=== PATIENT | female | born 1980 | race Caucasian/White ===

== ENCOUNTER 2017-10-18 19:19 | Emergency (ER) | payer SELFPAY ==
[2017-10-18] MEDS ORDERED: Lidocaine 2% Viscous Solution 15 ML Cup PO ONE (19:39)
[2017-10-18] MEDS ORDERED: Benzocaine 20% Topical Spray UD MUCMEM ONE (19:39)
--- NOTE | 2017-10-18 19:49 | EDM.PDOC ---
ED HPI GENERAL MEDICAL PROBLEM - General Chief Complaint: ENT Problem Stated Complaint: PT HAS TOOTHACHE Time Seen by Provider: 10/18/17 19:43 Source of Information: Reports: Patient History Limitations: Reports: No Limitations - History of Present Illness INITIAL COMMENTS - FREE TEXT/NARRATIVE: HISTORY AND PHYSICAL: History of present illness: Patient is a 36-year-old female here with complaint of dental pain. She states that she had the tooth pulled 5 days ago. She states she had it pulled because it was cracked and infected. She states that she has had a lot of pain since then that is not getting better. She is on an antibiotic and has been taking [place] for the pain. She denies any fevers or chills, nausea, vomiting. She denies difficultly swallowing or breathing. Review of systems: As per history of present illness and below otherwise all systems reviewed and negative. Past medical history: As per history of present illness and as reviewed below otherwise noncontributory. Surgical history: As per history of present illness and as reviewed below otherwise noncontributory. Social history: No reported history of drug or alcohol abuse. Family history: As per history of present illness and as reviewed below otherwise noncontributory. Physical exam: General: patient sitting comfortably in no acute distress HEENT: Patient has poor dentition throughout. There is evidence of extraction of the right lower 2nd molar. There is no surrounding erythema or purlence. Atraumatic, normocephalic, pupils reactive, negative for conjunctival pallor or scleral icterus, mucous membranes moist, throat clear, neck supple, nontender, trachea midline. Lungs: Clear to auscultation, breath sounds equal bilaterally, chest nontender. Heart: S1S2, regular, negative for clicks, rubs, or JVD. Extremities: Atraumatic, negative for cords or calf pain. Neurovascular unremarkable. Neuro: Awake, alert, oriented. Cranial nerves II through XII unremarkable. Cerebellum unremarkable. Motor and sensory unremarkable throughout. Exam nonfocal. Notes: Diagnostics: None Therapeutics: Dental Balls Impression: Dental pain follow tooth extraction Plan: 1. Use dental balls as needed for pain 2. Follow up with your dentist in the morning 3. Return to ED as needed as discussed Definitive disposition and diagnosis as appropriate pending reevaluation and review of above. R jaw Pain Score (Numeric/FACES): 8 - Related Data Allergies Allergy/AdvReac Type Severity Reaction Status Date / Time aspirin Allergy Rash Verified 10/18/17 19:30 Home Meds: Home Meds Cephalexin [Keflex] 750 mg PO BID 10/18/17 [History] Past Medical History - Past Health History Medical/Surgical History: Denies Medical/Surgical History - Infectious Disease History Infectious Disease History: Reports: Chicken Pox - Past Surgical History Female Surgical History: Reports: Section Social & Family History - Tobacco Use Smoking Status *Q: Current Every Day Smoker Years of Tobacco use: 12 Packs/Tins Daily: 0.2 - Caffeine Use Caffeine Use: Reports: Soda - Recreational Drug Use Recreational Drug Use: No ED ROS ENT - Review of Systems Review Of Systems: ROS reveals no pertinent complaints other than HPI. ED EXAM, ENT - Physical Exam Exam: See Below (see dictation) Course - Vital Signs Last Recorded V/S: Last Vital Signs Temp 36.6 C 10/18/17 19:28 Pulse 111 H 10/18/17 19:28 Resp 12 10/18/17 19:28 BP 170/98 H 10/18/17 19:28 Pulse Ox 100 10/18/17 19:28 - Orders/Labs/Meds Meds: Medications Discontinued Medications Generic Name Dose Route Start Last Admin Trade Name Freq PRN Reason Stop Dose Admin Benzocaine 2 each 10/18/17 19:39 Hurricaine One 20% MUCMEM 10/18/17 19:40 ONETIME ONE Lidocaine HCl 15 ml 10/18/17 19:39 Xylocaine 2% Viscous PO 10/18/17 19:40 ONETIME ONE Departure - Departure Time of Disposition: 19:49 Disposition: Home, Self-Care 01 Condition: Good Clinical Impression: Dentalgia - Discharge Information Referrals: PCP,None [Primary Care Provider] - Additional Instructions: The following information is given to patients seen in the emergency department who are being discharged to home. This information is to outline your options for follow-up care. We provide all patients seen in our emergency department with a follow-up referral. The need for follow-up, as well as the timing and circumstances, are variable depending upon the specifics of your emergency department visit. If you don't have a primary care physician on staff, we will provide you with a referral. We always advise you to contact your personal physician following an emergency department visit to inform them of the circumstance of the visit and for follow-up with them and/or the need for any referrals to a consulting specialist. The emergency department will also refer you to a specialist when appropriate. This referral assures that you have the opportunity for follow-up care with a specialist. All of these measure are taken in an effort to provide you with optimal care, which includes your follow-up. Under all circumstances we always encourage you to contact your private physician who remains a resource for coordinating your care. When calling for follow-up care, please make the office aware that this follow-up is from your recent emergency room visit. If for any reason you are refused follow-up, please contact the [facility] Emergency Department at and asked to speak to the emergency department charge nurse. 1. Use dental balls as needed for pain 2. Follow up with your dentist in the morning 3. Return to ED as needed as discussed
[2017-10-18 20:07] VITALS: BP 133/96
== END 2017-10-18 20:07 | disposition home or self-care (01) ==
LOC: MW.ED 19:19
DX: K08.89 Other specified disorders of teeth and supporting structures (principal); F17.210 Nicotine dependence, cigarettes, uncomplicated; Z88.8 Allergy status to other drugs, medicaments and biological substances; Z79.899 Other long term (current) drug therapy; Z98.890 Other specified postprocedural states
CPT/HCPCS: 99283; A9270

== ENCOUNTER 2018-05-17 23:34 | Emergency (ER) | payer SELFPAY ==
--- NOTE | 2018-05-17 23:44 | EDM.PDOC ---
ED HPI GENERAL MEDICAL PROBLEM - General Chief Complaint: Upper Extremity Injury/Pain Stated Complaint: FINGER ON RT HAND HURTS Time Seen by Provider: 05/17/18 23:40 - History of Present Illness INITIAL COMMENTS - FREE TEXT/NARRATIVE: HISTORY AND PHYSICAL: History of present illness: Patient is a 37-year-old white female presents with concern of acute injury to her right hand particularly her fifth digit in which she states she hit it into a wall yesterday. She denies other tremor concern Review of systems: As per history of present illness and below otherwise all systems reviewed and negative. Past medical history: As per history of present illness and as reviewed below otherwise noncontributory. Surgical history: As per history of present illness and as reviewed below otherwise noncontributory. Social history: No reported history of drug or alcohol abuse. Family history: As per history of present illness and as reviewed below otherwise noncontributory. Physical exam: HEENT: Atraumatic, normocephalic, pupils reactive, negative for conjunctival pallor or scleral icterus, mucous membranes moist, throat clear, neck supple, nontender, trachea midline. Lungs: Clear to auscultation, breath sounds equal bilaterally, chest nontender. Heart: S1S2, regular, negative for clicks, rubs, or JVD. Abdomen: Soft, nondistended, nontender. Negative for masses or hepatosplenomegaly. Negative for costovertebral tenderness. Pelvis: Stable nontender. Genitourinary: Deferred. Rectal: Deferred. Extremities: Patient is known to have swelling and pain over the DIP fifth digit of her right hand with a bit of a flexion deformity neurovascular exam is unremarkable. Neuro: Awake, alert, oriented. Cranial nerves II through XII unremarkable. Cerebellum unremarkable. Motor and sensory unremarkable throughout. Exam nonfocal. Diagnostics: X-ray rating Therapeutics: AlumaFoam volar splint Impression: #1 acute injury fifth digit right hand rule out extensor tendon injury Definitive disposition and diagnosis as appropriate pending reevaluation and review of above. - Related Data Allergies Allergy/AdvReac Type Severity Reaction Status Date / Time aspirin Allergy Rash Verified 10/18/17 19:30 Home Meds: Home Meds Cephalexin [Keflex] 750 mg PO BID 10/18/17 [History] Past Medical History - Past Health History Medical/Surgical History: Denies Medical/Surgical History - Infectious Disease History Infectious Disease History: Reports: Chicken Pox - Past Surgical History Female Surgical History: Reports: Section Social & Family History - Caffeine Use Caffeine Use: Reports: Soda Review of Systems - Review of Systems Review Of Systems: ROS reveals no pertinent complaints other than HPI. ED EXAM, GENERAL - Physical Exam Exam: See Below (See dictation) Course - Orders/Labs/Meds Orders: Active Orders 24 hr Category Date Time Status Hand Comp Min 3V Rt [CR] Stat Exams 05/17/18 23:41 Ordered Departure - Departure Time of Disposition: 23:44 Disposition: Home, Self-Care 01 Condition: Good Clinical Impression: Injury of right hand - Discharge Information Referrals: PCP,None [Primary Care Provider] - Additional Instructions: The following information is given to patients seen in the emergency department who are being discharged to home. This information is to outline your options for follow-up care. We provide all patients seen in our emergency department with a follow-up referral. The need for follow-up, as well as the timing and circumstances, are variable depending upon the specifics of your emergency department visit. If you don't have a primary care physician on staff, we will provide you with a referral. We always advise you to contact your personal physician following an emergency department visit to inform them of the circumstance of the visit and for follow-up with them and/or the need for any referrals to a consulting specialist. The emergency department will also refer you to a specialist when appropriate. This referral assures that you have the opportunity for followup care with a specialist. All of these measure are taken in an effort to provide you with optimal care, which includes your followup. Under all circumstances we always encourage you to contact your private physician who remains a resource for coordinating your care. When calling for followup care, please make the office aware that this follow-up is from your recent emergency room visit. If for any reason you are refused follow-up, please contact the [facility] emergency department at and asked to speak to the emergency department charge nurse. [facility] specialty clinic-Plastics [address] [place] [address] [phone] Splint as directed follow-up hand surgery above call to schedule appointment - My Orders Last 24 Hours: My Active Orders 05/17/18 23:41 Hand Comp Min 3V Rt [CR] Stat - Assessment/Plan Last 24 Hours: My Active Orders 05/17/18 23:41 Hand Comp Min 3V Rt [CR] Stat
[2018-05-18 00:50] VITALS: BP 132/87
--- NOTE | 2018-05-18 10:05 | CR ---
EXAM DATE: 05/17/18 PATIENT'S AGE: 37 Patient: JAVIER EPSTEIN Facility: [facility] Site . Site : [id number] Study: XRay-Extremity Right HAND [id number]/[id number] 12:09:09 AM Ordering Physician: Jodi Aponte Final Report: INDICATION: Hand pain, punched a wall 1 or 2 days ago TECHNIQUE: Hand radiograph 3 views right COMPARISON: None FINDINGS: Bone: There is a minimally displaced intra-articular avulsion fracture from the dorsal aspect of the distal 5th phalanx. The fracture fragment measures 2 mm. Joint: The carpal and metacarpal-phalangeal joints are unremarkable in appearance. The interphalangeal joints are normal in appearance. Soft tissue: Unremarkable. No radiopaque foreign bodies are seen. IMPRESSION: 1. There is a minimally displaced intra-articular avulsion fracture from the dorsal aspect of the distal 5th phalanx. Dictated by Salas Trevino MD @ 05/18/2018 12:10:51 AM Dictated by: Salas Trevino MD @ 05/18/2018 00:10:53 Signed by: Salas Trevino MD @05/18/2018 12:10:53 AM (Electronic Signature) Report Signed by Proxy. ZEINAB
== END 2018-05-18 00:48 | disposition home or self-care (01) ==
LOC: MW.ED 23:34
DX: S69.91XA Unspecified injury of right wrist, hand and finger(s), initial encounter (principal); Z88.6 Allergy status to analgesic agent; W22.8XXA Striking against or struck by other objects, initial encounter
CPT/HCPCS: 73130-26-RT; 73130-RT; 99283-25

== ENCOUNTER 2018-06-26 16:28 | Emergency (ER) | payer SELFPAY ==
[2018-06-26] MEDS ORDERED: Diphtheria,Pertussis(Acell),Tetanus Vaccine 0.5 ML Syringe IM ONE (16:53)
--- NOTE | 2018-06-26 17:03 | EDM.PDOC ---
ED HPI GENERAL MEDICAL PROBLEM - General Chief Complaint: Head Injury Stated Complaint: FELL AND HIT HEAD Time Seen by Provider: 06/26/18 16:29 Source of Information: Reports: Patient History Limitations: Reports: No Limitations - History of Present Illness INITIAL COMMENTS - FREE TEXT/NARRATIVE: HISTORY AND PHYSICAL: History of present illness: Patient is a 37-year-old female who presents to the emergency room with complaints of a head injury and laceration post-fall. Patient reports she tripped and fell backwards hitting the back of her scalp. She does have a 2 cm superficial laceration to the posterior scalp, no current bleeding noted. She is unsure if she had a loss of consciousness, believe she did not. Patient has localized pain to the area that has a laceration. She denies any neck pain or any other extremity involvement. Patient denies any fever, chills, change in vision, syncope or near syncope. Denies any chest pain, back pain, shortness of breath or cough. Denies any abdominal pain, nausea, vomiting, diarrhea, constipation or dysuria. Has not noted any blood in urine or stool. Patient has been eating and drinking appropriately. Review of systems: As per history of present illness and below otherwise all systems reviewed and negative. Past medical history: As per history of present illness and as reviewed below otherwise noncontributory. Surgical history: As per history of present illness and as reviewed below otherwise noncontributory. Social history: See social history for further information Family history: As per history of present illness and as reviewed below otherwise noncontributory. Physical exam: General: Well-developed and well-nourished 37 she'll female. Alert and oriented. Nontoxic appearing and in no acute distress. HEENT: 2 cm laceration to the posterior scalp, no current bleeding noted. Mild soft tissue swelling and tenderness to the area. Otherwise normocephalic, pupils equal and reactive bilaterally, negative for conjunctival pallor or scleral icterus, mucous membranes moist, TMs normal bilaterally, throat clear, neck supple, nontender, trachea midline. No drooling or trismus noted. No meningeal signs. No hot potato voice noted. Lungs: Clear to auscultation, breath sounds equal bilaterally, chest nontender. Heart: S1S2, regular rate and rhythm without overt murmur Abdomen: Soft, nondistended, nontender. Negative for masses or hepatosplenomegaly. Negative for costovertebral tenderness. Pelvis: Stable nontender. Genitourinary: Deferred. Rectal: Deferred. Skin: See HEENT. Otherwise skin is intact, warm, dry. No lesions or rashes noted. Extremities: Atraumatic, moves all extremities per self without difficulty or deficits, negative for cords or calf pain. Neurovascular unremarkable. Neuro: Awake, alert, oriented. Cranial nerves II through XII unremarkable. Cerebellum unremarkable. Motor and sensory unremarkable throughout. Exam nonfocal. Notes: Patient is agreeable for head CT as she is unsure if she had any loss of consciousness. Wound care was provided, LET gel for comfort. Chlorhexidine and wound wash or use. #4 izaiah applied to the area. Patient tolerated well. Head CT shows no acute intracranial hemorrhage or mass. She does have maxillary and ethmoid sinus disease. Patient c/o pain; will give limited about of Tramadol. Supportive care measures were reviewed and discussed. Voices understanding and is agreeable to plan of care. Denies any further questions or concerns at this time. Diagnostics: Head CT Therapeutics: Tdap, Wound care Prescription: Tramadol (#10) Impression: Head injury Laceration Plan: 1. Please review the head injury instructions that we discussed and that her printed in your discharge packet. 2. Keep the skin clean and dry. Izaiah to be removed in 7-10 days. You may wash your hair and shower per usual. Continue to monitor for signs of infection. 3. Routine Tylenol and ibuprofen for pain management. 4. Follow-up with your primary care provider as we discussed. Return to the ED as needed and as discussed. Definitive disposition and diagnosis as appropriate pending reevaluation and review of above. posterior of head Pain Score (Numeric/FACES): 8 - Related Data Allergies Allergy/AdvReac Type Severity Reaction Status Date / Time aspirin Allergy Rash Verified 05/17/18 23:44 Home Meds: Home Meds . [No Known Home Meds] 05/17/18 [History] Past Medical History - Past Health History Medical/Surgical History: Denies Medical/Surgical History - Infectious Disease History Infectious Disease History: Reports: Chicken Pox - Past Surgical History Female Surgical History: Reports: Section Social & Family History - Family History Family Medical History: Noncontributory - Tobacco Use Smoking Status *Q: Current Every Day Smoker Years of Tobacco use: 10 Packs/Tins Daily: 0.5 - Caffeine Use Caffeine Use: Reports: None - Recreational Drug Use Recreational Drug Use: No ED ROS GENERAL - Review of Systems Review Of Systems: ROS reveals no pertinent complaints other than HPI. ED EXAM, HEAD INJURY - Physical Exam Exam: See Below (See dictation) Course - Vital Signs Last Recorded V/S: Last Vital Signs Temp 98 F 06/26/18 16:41 Pulse 113 H 06/26/18 16:41 Resp 16 06/26/18 16:41 BP 152/101 H 06/26/18 16:41 Pulse Ox 96 06/26/18 16:41 - Orders/Labs/Meds Orders: Active Orders 24 hr Category Date Time Status Communication Order [RC] STAT Care 06/26/18 16:53 Active Vaccines to be Administered [RC] PER UNIT ROUTINE Care 06/26/18 16:53 Active Meds: Medications Discontinued Medications Generic Name Dose Route Start Last Admin Trade Name Freq PRN Reason Stop Dose Admin Diphtheria/Tetanus/Acell Pertussis 0.5 ml 06/26/18 16:53 06/26/18 17:28 Adacel IM 06/26/18 16:54 Not Given .ONCE ONE Lidocaine/Tetracaine 1 ml 06/26/18 17:22 06/26/18 17:28 Let Soln TOP 06/26/18 17:23 1 ml ONETIME ONE Administration Lidocaine/Tetracaine Confirm 06/26/18 17:22 06/26/18 17:28 Let Soln Administered 06/26/18 17:23 Not Given Dose 1 ml .ROUTE .STK-MED ONE Departure - Departure Time of Disposition: 17:52 Disposition: Home, Self-Care 01 Clinical Impression: Laceration Head injury Qualifiers: Encounter type: initial encounter Qualified Code(s): S09.90XA - Unspecified injury of head, initial encounter - Discharge Information Instructions: Head Injury, Adult, [id number] Referrals: PCP,Unknown [Primary Care Provider] - Forms: ED Department Discharge Additional Instructions: The following information is given to patients seen in the emergency department who are being discharged to home. This information is to outline your options for follow-up care. We provide all patients seen in our emergency department with a follow-up referral. The need for follow-up, as well as the timing and circumstances, are variable depending upon the specifics of your emergency department visit. If you don't have a primary care physician on staff, we will provide you with a referral. We always advise you to contact your personal physician following an emergency department visit to inform them of the circumstance of the visit and for follow-up with them and/or the need for any referrals to a consulting specialist. The emergency department will also refer you to a specialist when appropriate. This referral assures that you have the opportunity for follow-up care with a specialist. All of these measure are taken in an effort to provide you with optimal care, which includes your follow-up. Under all circumstances we always encourage you to contact your private physician who remains a resource for coordinating your care. When calling for follow-up care, please make the office aware that this follow-up is from your recent emergency room visit. If for any reason you are refused follow-up, please contact the [facility] Emergency Department at and asked to speak to the emergency department charge nurse. [facility] [address] [place] [address] [place] [address] 1. Please review the head injury instructions that we discussed and that her printed in your discharge packet. 2. Keep the skin clean and dry. [place] to be removed in 7-10 days. You may wash your hair and shower per usual. Continue to monitor for signs of infection. 3. Routine Tylenol and ibuprofen for pain management. 4. Follow-up with your primary care provider as we discussed. Return to the ED as needed and as discussed. - My Orders Last 24 Hours: My Active Orders 06/26/18 16:53 Communication Order [RC] STAT Vaccines to be Administered [RC] PER UNIT ROUTINE - Assessment/Plan Last 24 Hours: My Active Orders 06/26/18 16:53 Communication Order [RC] STAT Vaccines to be Administered [RC] PER UNIT ROUTINE
[2018-06-26] MEDS ORDERED: Lidocaine/EPINEPHrine/Tetracaine Soln 1 ML ONE (17:22)
[2018-06-26] MEDS ORDERED: Lidocaine/EPINEPHrine/Tetracaine Soln 1 ML TOP ONE (17:22)
--- NOTE | 2018-06-26 17:38 | CT ---
Fell technique noncontrast head CT scan. Coronal and sagittal re-formatted images obtained. FINDINGS: Axial noncontrast images through the brain parenchyma demonstrates no acute intracranial hemorrhage or mass. No midline shift. No abnormal extra-axial air fluid collections. Opacification of the maxillary sinuses with fluid level in the right maxillary sinus. Partial opacification of the ethmoid air cells. Fluid in the left mastoid air cells. Paranasal sinuses mastoid air cells skull scalp otherwise appears unremarkable. IMPRESSION: 1. No acute intracranial hemorrhage or mass. 2. Maxillary and ethmoid sinus disease. Please note that all CT scans at this facility use dose modulation, iterative reconstruction, and/or weight-based dosing when appropriate to reduce radiation dose to as low as reasonably achievable. Dictated by Cris Gracia MD @ Jun 26 2018 5:34PM Signed by Dr. Cris Gracia @ Jun 26 2018 5:36PM
[2018-06-26 18:09] VITALS: BP 153/102
== END 2018-06-26 18:09 | disposition home or self-care (01) ==
LOC: MW.ED 16:28
DX: S06.9X9A Unspecified intracranial injury with loss of consciousness of unspecified duration, initial encounter (principal); S01.01XA Laceration without foreign body of scalp, initial encounter; F17.210 Nicotine dependence, cigarettes, uncomplicated; Z88.6 Allergy status to analgesic agent; W01.198A Fall on same level from slipping, tripping and stumbling with subsequent striking against other object, initial encounter
CPT/HCPCS: 70450; 70450-26; 99283-25

== ENCOUNTER 2018-07-20 03:37 | Emergency (ER) | payer SELFPAY ==
[2018-07-20 04:23] VITALS: BP 152/92
== END 2018-07-20 03:50 | disposition home or self-care (01) ==
LOC: MW.ED 03:37
DX: Z53.21 Procedure and treatment not carried out due to patient leaving prior to being seen by health care provider (principal)

== ENCOUNTER 2022-01-08 18:37 | Emergency (ER) | payer SELFPAY ==
[2022-01-08] MEDS ORDERED: traMADol 50 MG Tab PO ONE (18:58)
[2022-01-08] MEDS ORDERED: Sodium Chloride 0.9% 1,000 ML IV ONE (18:58)
[2022-01-08] MEDS ORDERED: Ondansetron 4 MG/2 ML SDV IVPUSH ONE (18:58)
[2022-01-08 19:58] LABS: CARBON DIOXIDE,CO2 26.2 mmol/L (21.0-32.0); POTASSIUM,K 3.8 mmol/L (3.5-5.1)
[2022-01-08 20:29] VITALS: BP 162/100; PULSE 72
== END 2022-01-08 20:48 | disposition home or self-care (01) ==
LOC: MW.ED 18:37
DX: N92.0 Excessive and frequent menstruation with regular cycle (principal); D64.9 Anemia, unspecified; Z88.8 Allergy status to other drugs, medicaments and biological substances
CPT/HCPCS: 36415; 76830; 80053; 81001; 81025; 85025; 96361; 96374; 99284; A9270; J2405; J7030

== ENCOUNTER 2022-03-23 14:54 | Emergency (ER) | payer SELFPAY ==
[2022-03-23] MEDS ORDERED: Sodium Chloride 0.9% 1,000 ML IV ONE (15:45)
[2022-03-23] MEDS ORDERED: cefTRIAXone 1 GM in Sodium Chloride 0.9% 50 ML IV ONE (15:45)
[2022-03-23] MEDS ORDERED: Ondansetron 4 MG/2 ML SDV IVPUSH ONE (15:45)
[2022-03-23 16:55] LABS: CARBON DIOXIDE,CO2 29.9 mmol/L (21.0-32.0); POTASSIUM,K 3.2 mmol/L (3.5-5.1)
[2022-03-23] MEDS ORDERED: Ondansetron 4 MG Tab.DIS PO ONE (17:33)
[2022-03-23 17:54] VITALS: BP 155/104; PULSE 77
== END 2022-03-23 17:59 | disposition home or self-care (01) ==
LOC: MW.ED 14:54
DX: N12 Tubulo-interstitial nephritis, not specified as acute or chronic (principal); Z88.6 Allergy status to analgesic agent; F17.210 Nicotine dependence, cigarettes, uncomplicated
CPT/HCPCS: 36415; 80053; 81001; 81025; 85025; 87086; 96365; 96375; 99284; A9270; J0696; J2405; J7030; J7050